=== PATIENT | male | born 1950 | race Caucasian/White ===

== ENCOUNTER 2018-04-08 17:03 | Observation (INO) ==
[2018-04-08] MEDS: 0.9 % Sodium Chloride w KCl 20 MEQ/1,000 ML MLS IVC SCH (20:45)
--- NOTE | 2018-04-08 23:16 | Internal Med History&Physical ---
Date of Encounter: 04/09/18 Time of Encounter: 23:09 Assessment and Plan (1) Pulmonary infection Current visit: Yes Status: Acute With his cough, change in sputum, fever, chills, leukocytosis I suspect he has a significant pulmonary infection despite a negative chest x-ray. Blood cultures have been obtained. We will start Levaquin. Follow-up pulmonary examination tomorrow. Nebulizer treatment when necessary (2) Hypokalemia Current visit: Yes Status: Acute Hypokalemia. Not sure the etiology. Could be related to his hydrochlorothiazide for blood pressure, but he has been on this for a while it was normal last month. We will replace intravenously with bolus as well as dri p. Reevaluate in the morning. We will have him be on the campus monitor (3) Hyponatremia Current visit: Yes Status: Acute Hyponatremia may be coming from the hydrochlorothiazide, but he has not had this problem previously. With poor oral intake it could be from dehydration. Saline started (4) COPD (chronic obstructive pulmonary disease) Current visit: Yes Status: Acute COPD from tobacco use. He has had exacerbation with cough, thick sputum. We will try nebulizer treatment and Mucomyst and see if it loosens the sputum. Qualifiers: COPD type: COPD with acute lower respiratory infection Qualified Code(s): J44.0 - Chronic obstructive pulmonary disease with acute lower respiratory infection (5) Hypertension Current visit: Yes Status: Acute History of hypertension. Recently had hypotensive episode 4 days after resuming amlodipine so it was held. We are going to hold his hydrochlorothiazide. We will monitor the blood pressure. Qualifiers: Hypertension type: essential hypertension Qualified Code(s): I10 - Essential (primary) hypertension Internal Medicine - H&P: HPI History of present illness: Mr. Leal is a 67 year old male with known history of hypertension, tobacco use and recent hypotensive episode is admitted to observation bed today with history of hyponatremia, hypokalemia cough and anorexia. He was seen in the office 03/30/18 and having had an episode of near syncope with drop in blood pressure down to 86 systolic. It occurred 4 days after restarting amlodipine which was previously held because of hypotension and dehydration and treated in the ER last month. We held his amlodipine and a couple of days later he started having cough and congestion and illness. His sputum has become very thick and hard to cough up. He has had chills. He has had markedly decreased oral intake. He has had some perspiration and damp T-shirt. He has had decreased sleep because of increased cough. He has had a low-grade fever of 100.2-100.4 range. He was a smoker a pack of cigarettes per day for many years, he has cut back lately to approximately one half pack per day. He is now down to 1 cigarette today as he has been ill. Because of his symptoms and chest x-ray and labwork was obtained today. The chest x-ray showed chronic COPD/emphysema changes but no infiltrate. His labs showed sodium 128 and a potassium of 2.9, white blood cell count elevated at 15,000 and sedimentation rate elevated at 33. With these findings and worsening of his symptoms I recommended that he be admitted to the hospital. I presume that he may have a significant pulmonary infection despite a clear chest x-ray. Past Med Surg Social Fam HX - Past Medical History Medical history: COPD, GERD, glaucoma, hypertension, syncope Psychiatric history: no psych history - Past Surgical History Surgical History: herniorrhaphy, tonsilectomy, other Additional surgical history: Fatty Tumor Removed From Back - Social History Smoking Status: Current every day smoker Packs per day: half Smokeless Tobacco Status: No Alcohol use: occasionally Drug use: none - Family History Brother Living Status: Hx Family Cancer: Yes (Colon cancer at age 57) Mother Living Status: Hx Family Cardiac Disorders: Yes (Hypertension) Hx Family Endocrine Disorder: Yes (Diabetes) Hx Family Musculoskeletal Disorders: Yes (Arthritis) Father Living Status: Hx Family Respiratory Disorders: Yes Internal Medicine - H&P: Meds Lisinopril-HCTZ 10-12.5 [Prinzide 10-12.5] 1 each PO DAILY 02/25/18 [History] Metoprolol [Lopressor] 25 mg PO DAILY 02/25/18 [History] Aspirin [Lo-Dose Aspirin EC] 81 mg PO QPM 04/08/18 [History] Brimonidine Tartrate/Timolol [Combigan Eye Drops] 5 ml OP DAILY 04/08/18 [History] Omeprazole [PriLOSEC] 20 mg PO DAILY 04/08/18 [History] Allergy/AdvReac Type Severity Reaction Status Date / Time No Known Allergies Allergy Verified 02/25/18 12:01 - Constitutional Constitutional: anorexia, chills, fever(s), lethargy, malaise, no night sweats - EENT Eyes: no change in vision Ears: no decreased hearing, no ear pain Nose, mouth and throat: no dental pain, no mouth pain, no sore throat - Cardiovascular Cardiovascular ROS IM: no chest pain, no irregular heart rhythm, no palpitations - Respiratory Respiratory: cough, chest congestion, change in phlegm color, no dyspnea, no hemoptysis, no dyspnea on exertion, no wheezing - Gastrointestinal Gastrointestinal: no abdominal pain, no change in stool character, no heartburn, no nausea, no vomiting - Genitourinary Genitourinary ROS male: no dysuria, no urinary frequency, no urinary hesitancy - Musculoskeletal Musculoskeletal ROS IM: no arthralgias, no muscle weakness - Integumentary Integumentary IM: no rash - Neurological Neurological ROS: no dizziness, no tremor(s), no vertigo - Psychiatric Psychiatric: no depression - Constitutional Vitals: Temp Pulse Resp BP Pulse Ox 98.2 F 97 18 144/91 93 04/08/18 19:08 04/08/18 19:08 04/08/18 19:08 04/08/18 19:08 04/08/18 19:08 General appearance: Present: cachectic, A&O X 3, no acute distress, answers questions appropriately - Eye Eye exam: Absent: scleral icterus - ENT ENT exam: Present: mucous membranes moist, TM's normal bilaterally - Neck Neck exam general surgery: Absent: lymphadenopathy, thyromegaly - Respiratory Additional comments: Very diminished breath sounds throughout, but clear. No crackles or rhonchi. No respiratory distress. - Cardiovascular Cardiovascular exam: Present: RRR, +S1, +S2. Absent: systolic murmur - GI/Abdominal GI/Abdominal exam: Present: soft. Absent: guarding, hepatomegaly, splenomegaly, tenderness - Extremities Exam Extremities exam: Absent: calf tenderness, mottling, pedal edema, tenderness - Neurological Exam Neurological exam: Present: CN II-XII intact, oriented X3, no focal deficits - Skin Skin exam: Absent: rash Internal Med - H&P Results - Labs CBC & Chem 7: 04/09/18 05:55 04/09/18 05:55 Labs: Potassium 2.9. Sodium 128. White blood cell count 15,000 - Diagnostic Studies Chest x-ray Status: image reviewed by me Additional comments: Chest x-ray shows chronic COPD/emphysematous changes. No obvious infiltrate or effusion.
[2018-04-08] MEDS ORDERED: Levofloxacin 500 MG/100 ML 500 MG/100 ML BAG IVPB SCH (23:45)
[2018-04-09] MEDS: Acetylcysteine 10% 2 ML INHSOL IH SCH ×2 (04:30→09:52)
[2018-04-09] MEDS: Ipratropium/Albuterol Neb 3 ML IH PRN ×2 (04:40→09:51)
[2018-04-09] MEDS: 0.9 % Sodium Chloride w KCl 20 MEQ/1,000 ML MLS IVC SCH ×2 (05:27→13:26)
[2018-04-09] MEDS ORDERED: *HR* Enoxaparin 40 MG/0.4 ML SYRINGE SQ SCH (06:00)
[2018-04-09 06:10] LABS: Basophils # 0.1 K/mcL (0.0-0.2); Basophils % 0.5 %; Eosinophils # 0.1 K/mcL (0.0-0.6); Eosinophils % 0.9 %; Hemoglobin 12.1 g/dL (12.9-16.9); Immature Granulocytes % 1.1 % (0-4); Lymphocytes # 2.5 K/mcL (0.6-4.6); Lymphocytes % 21.3 %; Mean Corpuscular HGB Conc 34.6 g/dL (31.6-35.5); Mean Corpuscular Hemoglobin 28.3 pg (28.0-33.3); Mean Corpuscular Volume 81.8 fL (83.0-100.0); Mean Platelet Volume 9.3 fL (9.4-12.4); Monocytes # 1.6 K/mcL (0.0-1.3); Monocytes % 13.5 %; Neutrophils # 7.3 K/mcL (1.6-8.9); Platelet Count 435 K/mcL (140-400); Red Blood Count 4.28 M/mcL (4.19-5.50); Red Cell Distribution Width 12.7 % (11.5-14.5); Segmented Neutrophils % 62.7 %
[2018-04-09 06:19] LABS: Platelet Estimate Normal (Normal)
[2018-04-09 06:20] LABS: Reactive Lymphocytes Present (Not Present)
[2018-04-09 06:23] LABS: BUN/Creatinine Ratio 12 (6-26); Blood Urea Nitrogen 8 mg/dL (8-23); Calcium 8.7 mg/dL (8.6-10.3); Carbon Dioxide 32 mEq/L (23-29); Chloride 93 mEq/L (98-107); Glucose 115 mg/dL (70-105); Osmolality,Calculated 267 (280-300); Potassium 3.3 mEq/L (3.5-5.1); Sodium 129 mEq/L (136-145); eGFR For Non-African Americans > 60 (> 60)
[2018-04-09 12:28] VITALS: BP 139/91
--- NOTE | 2018-04-09 13:18 | Discharge Summary ---
- NOTES TO OUTPATIENT PROVIDER Notes to Outpatient Provider: #1. Anticoagulation started with Eliquis. #2. Follow-up cardiology consultation to be arranged. #3. Pulmonary infection treated with Levaquin. #4. Potassium supplement started and hydrochlorothiazide held Date of Encounter: 04/09/18 Time of Encounter: 13:16 - Discharge Diagnosis (1) New onset atrial fibrillation Priority: Primary Status: Acute Comments: Patient was initially admitted for pulmonary infection and hyponatremia and hypokalemia. During the hospital stay, as an incidental finding, the teletypesetter monitor showed patient to be in atrial fibrillation which is rate controlled. He had no chest pain, palpitations, CHF or any cardiac symptoms. Coincidentally, he had an echocardiogram done yesterday checking his aortic root as it appeared to be enlarged on a CT scan that he had done checking his lungs recently. The report on echocardiogram is still pending. We will continue his metoprolol which is controlling the rate well. We will start Eliquis 5 mg twice a day and arrange for cardiology consultation. Risks of anticoagulation versus the benefits discussed with the patient and daughter. (2) Pulmonary infection Priority: Secondary Status: Acute Comments: Patient has had low-grade fever, leukocytosis, change in sputum production and known history of COPD and tobacco use. His white blood cell count went from 15,000 down to 11,000 after initiating Levaquin. He will be discharged on Le vaquin for presumed bronchial infection. Chest x-ray did not show any infiltrate and he has no auscultation signs of pneumonia. Tobacco cessation has again been urged. (3) Hypokalemia Priority: Secondary Status: Acute Comments: Patient was admitted with hypokalemia of 2.9. We presume this was from his hydrochlorothiazide use as well as markedly decreased appetite. He was given potassium bolus as well as saline drip with potassium overnight and potassium is now 3.0. He will have potassium supplement and be rechecked in the office. Hydrochlorothiazide will be held (4) Hyponatremia Priority: Secondary Status: Acute Comments: Hyponatremia likely due to hydrochlorothiazide use. No other obvious etiology other than dietary. His sodium has gone from 128 up to 129. We will hold the hydrochlorothiazide and follow as an outpatient. (5) COPD (chronic obstructive pulmonary disease) Priority: Secondary Status: Acute Comments: Long-standing history of cigarette use. Chest x-ray shows COPD/emphysematous changes. Tobacco cessation has again been urged. No infiltrate noted though he has had sputum production and low-grade fever and improved with Levaquin. We will continue the same. He had marginal improvement with bronchodilator nebulizer use. We will consider inhaler use as an outpatient. Qualifiers: COPD type: COPD with acute lower respiratory infection Qualified Code(s): J44.0 - Chronic obstructive pulmonary disease with acute lower respiratory infection (6) Hypertension Priority: Secondary Status: Acute Comments: Long-standing history of hypertension. Recently his amlodipine was held because of hypotensive episode occurred 4 days after initiating the amlodipine. Blood pressures mildly elevated during the stay. We will continue beta brenna for blood pressure as well as rate control for the atrial fibrillation hydrochlorothiazide is being held because of hyponatremia and hypokalemia. Monitor blood pressure at home and decide whether to add back ARB or other medication based on blood pressure readings Qualifiers: Hypertension type: essential hypertension Qualified Code(s): I10 - Essential (primary) hypertension Hospital course: Mr. Leal is a 67 year old male who was felt ill recently, low-grade fever, poor appetite, cough or sputum production was admitted with pulmonary infection and hyponatremia and hypokalemia. As an incidental finding, he was in atrial fibrillation with rate controlled with his beta brenna. See the diagnoses above. He is medically stable for discharge today in follow- up to be arranged as an outpatient. Discharge discussed with: patient, family - Time Spent with Patient Total time spent providing and/or coordinating discharge services: - Discharge Medications Prescriptions: New Apixaban [Eliquis] 5 mg PO BID PRN #60 tablet PRN Reason: Cardiac Arrhythmia Metoprolol [Lopressor] 25 mg PO BID tablet Potassium Chloride [Klor-Con 10] 10 meq PO DAILY #30 tablet.er levoFLOXacin [Levaquin] 500 mg PO DAILY #7 tablet Continue Omeprazole [PriLOSEC] 20 mg PO DAILY Brimonidine Tartrate/Timolol [Combigan 0.2%-0.5% Eye Drops] 5 ml OP DAILY Discontinued Metoprolol [Lopressor] 25 mg PO DAILY Lisinopril-HCTZ 10-12.5 [Prinzide 10-12.5] 1 each PO DAILY Aspirin [Lo-Dose Aspirin EC] 81 mg PO QPM Home Medications: Brimonidine Tartrate/Timolol [Combigan 0.2%-0.5% Eye Drops] 5 ml OP DAILY 04/08/18 [History] Omeprazole [PriLOSEC] 20 mg PO DAILY 04/08/18 [History] Apixaban [Eliquis] 5 mg PO BID PRN #60 tablet 04/09/18 [Rx] Metoprolol [Lopressor] 25 mg PO BID tablet 04/09/18 [Rx] Potassium Chloride [Klor-Con 10] 10 meq PO DAILY #30 tablet.er 04/09/18 [Rx] levoFLOXacin [Levaquin] 500 mg PO DAILY #7 tablet 04/09/18 [Rx] Allergies/Adverse Reactions: Allergy/AdvReac Type Severity Reaction Status Date / Time No Known Allergies Allergy Verified 02/25/18 12:01 Date of admission: 04/08/18 19:02 Primary care physician: Aidan Light MD Discharging clinician: Aidan Light Anticipated date of discharge: 04/09/18 - Constitutional Vitals: Temp Pulse Resp BP Pulse Ox 98.4 F 82 16 139/91 93 04/09/18 12:00 04/09/18 12:00 04/09/18 12:00 04/09/18 12:00 04/09/18 12:00 General appearance: Present: A&O X 3, no acute distress, answers questions appropriately - Respiratory Respiratory exam: Present: decreased breath sounds, CTAB - Cardiovascular Cardiovascular exam: Present: irregular rhythm, +S1, +S2 - Extremities Exam Extremities exam: Absent: pedal edema - Patient Status Disposition: Home, Self-Care Condition: Good Functional capacity at discharge: independent ambulation Overall status at discharge: patient is progressing back to baseline - Discharge Instructions Follow Up With: Aidan Light MD [Primary Care Provider] - (Call office for follow-up in 7- 10 days.) - Diet and Activity Activity: increase activity as tolerated Diet: low salt diet
--- NOTE | 2018-04-09 20:49 | Electrocardiograph Report ---
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
[2018-04-09] MEDS ORDERED: Aspirin 81 MG TAB.CHEW PO SCH (21:00)
== END 2018-04-09 14:28 | disposition home or self-care (01) ==
LOC: INPGRE
PROVIDERS: ADMIT Family Medicine; ATTEND Family Medicine